=== PATIENT | female | born 1945 | race Two or more races ===

== ENCOUNTER 2022-04-02 09:13 | Inpatient (IN) | payer OTHER ==
[~2022-04-02] VITALS: Ht 165.1 cm; Wt 88.0 kg
[2022-04-02 10:02] LABS: BASOPHILS % (AUTO) 0.5 % (0.0-2.0); EOSINOPHILS % (AUTO) 0.9 % (0.0-6.0); HEMATOCRIT 40 % (33-45); HEMOGLOBIN 13.1 g/dL (11.5-14.8); LYMPHOCYTES # (AUTO) 1.3 K/uL (0.8-4.8); LYMPHOCYTES % (AUTO) 17.6 % (20.0-44.0); MEAN CORPUSCULAR HGB CONC 33 g/dl (31.0-36.0); MEAN CORPUSCULAR VOLUME 90 fL (82-100); MONOCYTES # (AUTO) 0.5 K/uL (0.1-1.30); MONOCYTES % (AUTO) 6.8 % (2.0-12.0); NEUTROPHILS # (AUTO) 5.4 K/uL (1.8-8.9); NEUTROPHILS % (AUTO) 74.2 % (43.0-81.0); PLATELET COUNT (AUTO) 262 K/uL (150-450); RED BLOOD CELL COUNT(AUTO) 4.44 MIL/uL (4.0-5.2); WHITE BLOOD COUNT (AUTO) 7.3 K/uL (4.3-11.0)
--- NOTE | 2022-04-02 10:20 | NUR ---
URINE COLLECTED AND SENT TO LAB
[2022-04-02 10:23] LABS: CALCIUM, SERUM 9.7 mg/dL (8.5-10.1); CARBON DIOXIDE 27 mmol/L (21-32); CHLORIDE 100 mmol/L (98-107); CREATININE 1.3 mg/dL (0.6-1.3); GLUCOSE 276 mg/dL (74-106); POTASSIUM 4.3 mmol/L (3.5-5.1); SODIUM SERUM 139 mmol/L (136-145); UREA NITROGEN, BLOOD 16 mg/dL (7-18)
[2022-04-02] MEDS ORDERED: IV NS 0.9% 1,000 ML IV ONE (11:30)
[2022-04-02] MEDS ORDERED: Magnesium 1 GM/2 ML VIAL IV ONE (11:30)
[2022-04-02] MEDS ORDERED: Magnesium 1 GM/2 ML VIAL ONE (11:33)
[2022-04-02] MEDS ORDERED: Magnesium 1GM/D5W 100ML PREMIX 200 ML IV ONE (11:36)
[2022-04-02] MEDS: Magnesium 1GM/D5W 100ML PREMIX 100 ML IV SCH ×2 (11:40→11:57)
[2022-04-02 12:21] LABS: BILIRUBIN,URINE NEGATIVE (NEGATIVE); COLOR,URINE YELLOW (YELLOW); LEUKOCYTE ESTERASE ,URINE NEGATIVE (NEGATIVE); NITRITE, URINE NEGATIVE (NEGATIVE); PH,URINE 5.5 (5.0-8.0); PROTEIN,URINE NEGATIVE (NEGATIVE); UGLUCOSE 3+ mg/dL (NEGATIVE); UROBILINOGEN,URINE 0.2 EU/dL (0.2)
[2022-04-02] MEDS ORDERED: DILTIAZEM HCL 50 MG IV IV ONE (13:00)
[2022-04-02 13:06] LABS: ABG BASE EXCESS -0.8 mmol/L; ABG OXYGEN SATURATION 49.9 % (92.0-98.5); ABG PCO2 50.4 mmHg (35.0-45.0); ABG PH 7.327 (7.350-7.450); ABG PO2 28.9 mmHg (75.0-100.0); COHb 0.8 % (0.5-1.5); MetHb 0.3 % (0.0-1.5); O2Hb 49.4 % (94.0-97.0); SITE, ABG A-Line; VENT MODE, BG 2 L NC
[2022-04-02 13:06] LABS: RBC,URINE 0-2 /HPF (0-2)
[2022-04-02 13:07] LABS: BACTERIA,URINE Few /HPF (None Seen); SQUAMOUS EPITHELIAL CELL,UR Few /HPF (None Seen)
[2022-04-02] MEDS ORDERED: DILTIAZEM HCL 50 MG IV ONE (13:12)
--- NOTE | 2022-04-02 14:05 | NUR ---
ROSSY ZAMORA, PHONE # [phone]
--- NOTE | 2022-04-02 14:56 | NUR ---
covid swab collected and sent to lab
--- NOTE | 2022-04-02 15:07 | NUR ---
REPORT GIVEN TO KAMILA ALTAMIRANO FOR SORAYA
[2022-04-02] MEDS ORDERED: HYDROCODONE/APAP 5/325MG TABLET PO PRN (16:00)
[2022-04-02] MEDS ORDERED: ENOXAPARIN SODIUM 40 MG/0.4 ML DISP.SYRIN SQ SCH (16:00)
[2022-04-02] MEDS ORDERED: MAGNESIUM HYDROXIDE 30 ML UDC PO PRN (16:00)
[2022-04-02] MEDS ORDERED: Z GUARD REMEDY 4 OZ OINT TP PRN (16:00)
[2022-04-02] MEDS ORDERED: MAG HYDROX/AL HYDROX/SIMETH 30 ML UDC PO PRN (16:00)
[2022-04-02] MEDS ORDERED: ZOLPIDEM TARTRATE 5 MG TABLET PO PRN (16:00)
[2022-04-02] MEDS ORDERED: DILTIAZEM HCL 50 MG IV IV PRN (16:00)
[2022-04-02] MEDS ORDERED: ACETAMINOPHEN 325 MG TABLET PO PRN (16:00)
[2022-04-02] MEDS ORDERED: ONDANSETRON HCL/PF 4 MG/2 ML VIAL IVP PRN (16:00)
[2022-04-02 18:00] VITALS: BP 119/73
--- NOTE | 2022-04-02 18:41 | NUR ---
PATIENT A/O X4, LEBANESE SPEAKING ONLY. FAMILY AT BEDSIDE. AMBULATORY WITH ASSIST. ON TELE, AFIB 100-110S. INDEPENDENT WITH REPOSITIONING. FALL PRECAUTIONS MAINTAINED AT ALL TIMES. SAFETY MEASURES MAINTAINED. BED IN LOWEST POSITION, BRAKES LOCKED. SIDE RAILS UP X2. CALL LIGHT WITHIN REACH. WILL ENDORSE CONTINUITY OF CARE TO ONCOMING SHIFT.
--- NOTE | 2022-04-02 19:30 | NUR ---
MARKETING FINANCE MANAGER OPENING NOTES - RECEIVED PATIENT LAYING IN BED AWAKE. A/OX 4, LITHUANIAN SPEAKING. BREATHING EVEN AND NON-LABORED ON ROOM AIR. NOT IN APPARENT DISTRESS. DENIES PAIN AT THIS TIME. ON TELE MONITOR READING A-FIB AT 106 BPM. HAS RIGHT ANTECUBITAL IV ACCESS #20G AND SALINE LOCKED. NO S/S OF INFILTRATION NOTED. PATIENT IS AMBULATORY. SAFETY PRECAUTIONS IN PLACE: BED LOCKED AND IN LOW POSITION, SIDE RAILS UP X2, CALL LIGHT WITHIN REACH. WILL CONTINUE PLAN OF CARE.
[2022-04-02 20:00] VITALS: BP 123/88
[2022-04-02] MEDS ORDERED: METOPROLOL TARTRATE 25 MG TABLET PO STA (20:00)
[2022-04-02] MEDS ORDERED: ENOXAPARIN SODIUM 80 MG/0.8 ML DISP.SYRIN SQ SCH (20:00)
--- NOTE | 2022-04-02 20:43 | NUR ---
NOTIFIED DR. INMAN THAT PATIENT IS ALLERGIC TO [facility]AN. AWAITING FOR RESPONSE. Addendum: 04/02/22 at 2114 by July FELIPE ALTAMIRANO ORDERED XARELTO 20MG PO DAILY. NOTED AND CARRIED OUT.
[2022-04-03] VITALS (14 sets, daily range): BP systolic 92–140; BP diastolic 47–85
[2022-04-03 05:49] LABS: BASOPHILS % (AUTO) 0.5 % (0.0-2.0); EOSINOPHILS % (AUTO) 1.5 % (0.0-6.0); HEMATOCRIT 38 % (33-45); HEMOGLOBIN 12.4 g/dL (11.5-14.8); LYMPHOCYTES # (AUTO) 1.7 K/uL (0.8-4.8); LYMPHOCYTES % (AUTO) 26.9 % (20.0-44.0); MEAN CORPUSCULAR HGB CONC 33 g/dl (31.0-36.0); MEAN CORPUSCULAR VOLUME 90 fL (82-100); MONOCYTES # (AUTO) 0.6 K/uL (0.1-1.30); MONOCYTES % (AUTO) 9.3 % (2.0-12.0); NEUTROPHILS # (AUTO) 3.9 K/uL (1.8-8.9); NEUTROPHILS % (AUTO) 61.8 % (43.0-81.0); PLATELET COUNT (AUTO) 240 K/uL (150-450); RED BLOOD CELL COUNT(AUTO) 4.16 MIL/uL (4.0-5.2); WHITE BLOOD COUNT (AUTO) 6.3 K/uL (4.3-11.0)
[2022-04-03 06:09] LABS: CALCIUM, SERUM 8.6 mg/dL (8.5-10.1); CREATININE 1.1 mg/dL (0.6-1.3); MAGNESIUM 2.2 mg/dL (1.8-2.4); PHOSPHORUS 3.5 mg/dL (2.5-4.9); POTASSIUM 4.2 mmol/L (3.5-5.1)
--- NOTE | 2022-04-03 06:46 | NUR ---
DEDICATED TRUCK DRIVER CLOSING NOTES - PATIENT SLEEPING IN BED, EASY TO AROUSE. ABLE TO VERBALIZE NEEDS. NO SOB OR NOTED. NO ACUTE DISTRESS THROUGHOUT THE NIGHT. NO C/O PAIN OR DISCOMFORT AT THIS TIME. AFEBRILE. ON TELE MONITOR READING CONTROLLED A-FIB AT 98 BPM. RIGHT ANTECUBITAL IV ACCESS INTACT, PATENT AND FLUSHING. ALL DUE MEDS GIVEN AND NEEDS ATTENDED. SAFETY PRECAUTIONS MAINTAINED. WILL ENDORSE TO NEXT SHIFT FOR SORAYA.
--- NOTE | 2022-04-03 07:40 | NUR ---
RN OPENING NOTE- - PT IN BED AWAKE. A/OX 4, ROMANIAN SPEAKING. BREATHING EVEN AND NON-LABORED ON ROOM AIR. DENIES PAIN AT THIS TIME. ON TELE MONITOR READING A-FIB AT 102 BPM. HAS RIGHT ANTECUBITAL IV ACCESS #20G . PATIENT IS AMBULATORY. SAFETY PRECAUTIONS IN PLACE: BED LOCKED AND IN LOW POSITION, SIDE RAILS UP X2, CALL LIGHT WITHIN REACH. WILL CONTINUE PLAN OF CARE / MONITOR
[2022-04-03] MEDS ORDERED: METOPROLOL TARTRATE 25 MG TABLET PO SCH ×2 (09:00→13:30)
[2022-04-03] MEDS ORDERED: APIXABAN 5 MG TABLET PO SCH (09:00)
[2022-04-03] MEDS: PANTOPRAZOLE 40 MG TABLET.DR PO SCH (09:30)
[2022-04-03] MEDS ORDERED: LORA10TA7 PO (09:34)
[2022-04-03] MEDS ORDERED: METO-357 PO (09:34)
[2022-04-03] MEDS ORDERED: LEVO75TA7 PO (09:34)
[2022-04-03] MEDS ORDERED: ATOR20TA PO (09:34)
[2022-04-03] MEDS ORDERED: METF-442 PO (09:34)
[2022-04-03] MEDS ORDERED: SACU1TAB7 PO (09:34)
[2022-04-03] MEDS ORDERED: RIVA10TA PO (09:34)
[2022-04-03] MEDS ORDERED: HYDR12.55 PO (09:34)
[2022-04-03] MEDS ORDERED: GLIM4TAB37 PO (09:34)
[2022-04-03] MEDS ORDERED: AMLO-212 PO (09:34)
--- NOTE | 2022-04-03 11:45 | NUR ---
RN NOTE- TELE MONITOR READINGS IN 180S. PT FOUND TO BE IN BR. ASSISTED BACK TO BED. HR DOWN TO 130'S. DR INMAN AND DR ARROYO NOTIFIED. DR ARROYO ORDERED CARDIZEM 10 MG IVP STAT. COMPLIED
[2022-04-03] MEDS ORDERED: DILTIAZEM HCL 50 MG IV IV STA (12:00)
[2022-04-03] MEDS ORDERED: DILTIAZEM HCL 25 MG IV IV ONE (12:06)
--- NOTE | 2022-04-03 12:46 | NUR ---
RN NOTE- SENIOR BRAND MANAGER NOTIFIED THIS RN THAT DR INMAN WANTS TO TRANSFER PT TO [facility]. BEGIN PROCESS. PT HR - 104.
[2022-04-03] MEDS: METOPROLOL TARTRATE 25 MG TABLET PO SCH ×3 (12:59→22:03)
--- NOTE | 2022-04-03 13:20 | NUR ---
RN NOTE- DR INMAN ORDERED PT TO ICU FOR TITRATED CARDIZEM DRIP . PT HR- AFIB 104, BP - 110/46. WILL PREPARE PT NOW
--- NOTE | 2022-04-03 13:33 | NUR ---
RN NOTE: TRANSFER FROM 3W PT RECEIVED FROM 3W AND REPORT RECEIVED AT BEDSIDE FROM ADARSH DAVALOS. PT TRANSFERRED TO [facility] FOR CARDIZEM DRIP. WILL CONTINUE TO MONITOR THIS SHIFT.
[2022-04-03] MEDS ORDERED: DILTIAZEM HCL IV 125 MG in IV NS 0.9% 100 ML IV PRN (14:00)
[2022-04-03] MEDS ORDERED: RIVAROXABAN 10 MG TABLET PO SCH (17:00)
[2022-04-03] MEDS: RIVAROXABAN 15 MG TABLET PO SCH (19:21)
--- NOTE | 2022-04-03 19:30 | NUR ---
PT IS IN BED WITH HOB ON SEMI FOWLERS. PT O2 SAT AT 97%. TOLERATING WELL WITH NO SIGNS OF LABORED BREATHING OR DISTRESS. PT IS A/OX3 TAIWANESE SPEAKING ONLY. PT USES BED SIDE COMMODE AND IS ON [facility] DIET AND CAN FEED HERSELF. IV ACCESS L AC INFUSING WITH CARDIZEM DRIP @5MG/HR FOR AFIB. BED IS LOCKED IN LOWEST POSITION X2 BED RAILS UP CALL LIGHT IS WITHIN REACH AND ALL HOSPITAL SAFETY MEASURES ARE IN PLACE. WILL CONTINUE PLAN OF CARE.
--- NOTE | 2022-04-03 19:57 | NUR ---
RN CLOSING NOTE PT IS IN BED WITH HOB HIGH FOWLERS. PT O2 SAT 97% TOLERATING WELL WITH NO SIGNS OF LABORED BREATHING OR DISTRESS. PT IS A/OX3 SLOVAK SPEAKING ONLY. PT USES BED SIDE COMMODE AND IS ON CCHO DIET AND CAN FEED HERSELF. IV ACCESS L AC INFUSING WITH CARDIZEM DRIP @5MG/HR FOR AFIB. BED IS LOCKED IN LOWEST POSITION X2 BED RAILS UP CALL LIGHT IS WITHIN REACH AND ALL HOSPITAL SAFETY MEASURES ARE IN PLACE. WILL ENDORSE TO HR REPRESENTATIVE NURSE FOR OSRAYA.
[2022-04-04] VITALS (22 sets, daily range): BP systolic 120–162; BP diastolic 47–94
--- NOTE | 2022-04-04 07:36 | NUR ---
PT IS IN BED WITH HOB ON SEMI FOWLERS. PT O2 SAT AT 97%. TOLERATING WELL WITH NO SIGNS OF LABORED BREATHING OR DISTRESS. PT IS AOX3 MALAY SPEAKING ONLY. PT USES BED SIDE COMMODE AND [facility] AND CAN FEED HERSELF. IV ACCESS LT FA ON SL. BED IS LOCKED IN LOWEST POSITION X2 BED RAILS UP CALL LIGHT IS WITHIN REACH AND ALL HOSPITAL. NEEDS ATTENDED. SAFETY MEASURES MAINTAINED. WILL ENDORSE TO NEXT NURSE ON DUTY FOR CONTINUITY OF CARE.
--- NOTE | 2022-04-04 07:53 | NUR ---
PT IN BED A/O X4 DIVEHI SPEAKING. BED SIDE MONITOR SHOWS CONTROLLED A FIB RATE <100 CARDIZEM DRIP TITRATED OFF AT END OF POWER REACTOR SUPERVISOR. VITALS ARE STABLE WITH HTN BP 150/76. LEFT FOREARM 20G SALINE FLUSH PATENT NO S/S OF INFILTRATION. PT IS AMBULATORY AND CONTINENT. IN BED EATTING BREAKFAST.
[2022-04-04] MEDS: PANTOPRAZOLE 40 MG TABLET.DR PO SCH (08:25)
[2022-04-04] MEDS: METOPROLOL TARTRATE 25 MG TABLET PO SCH ×2 (08:26→16:59)
[2022-04-04] MEDS: DILTIAZEM HCL CD 120 MG PO SCH (13:32)
[2022-04-04] MEDS: RIVAROXABAN 15 MG TABLET PO SCH (17:00)
--- NOTE | 2022-04-04 19:16 | NUR ---
noc rn note Patient received at this time. transferred from ICU. Patient is a/ox4, fijian speaking. no s/s of apparent distress on room air. denies any pain nor chest pain at this time. reading a-fib, controlled on the tele monitor. Patient ambulates with steady gait, with no sob noted. lt. fa #20g noted in place, saline lock. call light within reach. safety in place. needs attended for now. will continue with patient's plan of care.
--- NOTE | 2022-04-04 19:22 | NUR ---
PT IN BED BREATHING IS EVEN AND UNLABORED ON 6L NC, A/O X3, NO S/S OF ACUTE DISTRESS. BED SIDE MONITOR SHOWS VITAL SIGNS WNL. O2 SAT 93%. ON LEVO DRIP 0.05MCG/KG/MIN 0.1 DOSE RATE OVER SHOOTS TARGET BP CAUSES PT TO BE HYPERTENSIVE. MIDLINE INSERTION NI S/S OF INFILTRATION FLUSHES WITH EASE. THORACENTESIS OF LEFT PLURAL EFFUSION PREFORMED 700ML REMOVED AND SENT TO LAB. RENAL US DONE AND RESULTED NO HYDRONEPHROSIS OR STONES. MUJICA CATHETER NEEDED TO BE FLUSHED WITH 30 ML OF SALINE FOR PATENCY. MUJICA CATHETER IS NOW PATENT DRAINING YELLOW URINE 400 ML OUTPUT. HOB AT LOW FOWLERS.
[2022-04-05 01:00] VITALS: BP 133/81
[2022-04-05 05:00] VITALS: BP 139/70
[2022-04-05 06:23] LABS: BASOPHILS % (AUTO) 0.5 % (0.0-2.0); HEMATOCRIT 36 % (33-45); HEMOGLOBIN 12.4 g/dL (11.5-14.8); LYMPHOCYTES # (AUTO) 1.6 K/uL (0.8-4.8); LYMPHOCYTES % (AUTO) 27.2 % (20.0-44.0); MEAN CORPUSCULAR HGB CONC 35 g/dl (31.0-36.0); MEAN CORPUSCULAR VOLUME 93 fL (82-100); MONOCYTES # (AUTO) 0.6 K/uL (0.1-1.30); MONOCYTES % (AUTO) 10.2 % (2.0-12.0); NEUTROPHILS # (AUTO) 3.7 K/uL (1.8-8.9); NEUTROPHILS % (AUTO) 61.1 % (43.0-81.0); PLATELET COUNT (AUTO) 238 K/uL (150-450); RED BLOOD CELL COUNT(AUTO) 3.87 MIL/uL (4.0-5.2)
[2022-04-05 06:38] LABS: ALANINE AMINOTRANSFERASE 22 U/L (12-78); ALBUMIN 3.2 g/dL (3.4-5.0); ALKALINE PHOSPHATASE 91 U/L (46-116); ASPARTATE AMINOTRANSFERASE 17 U/L (15-37); BILIRUBIN,TOTAL 0.4 mg/dL (0.2-1.0); CALCIUM, SERUM 8.9 mg/dL (8.5-10.1); CARBON DIOXIDE 31 mmol/L (21-32); CHLORIDE 103 mmol/L (98-107); CREATININE 1.1 mg/dL (0.6-1.3); GLUCOSE 177 mg/dL (74-106); MAGNESIUM 2.1 mg/dL (1.8-2.4); PHOSPHORUS 4.1 mg/dL (2.5-4.9); POTASSIUM 4.2 mmol/L (3.5-5.1); SODIUM SERUM 140 mmol/L (136-145); TOTAL PROTEIN, SERUM 6.8 g/dL (6.4-8.2); UREA NITROGEN, BLOOD 13 mg/dL (7-18)
--- NOTE | 2022-04-05 07:05 | NUR ---
RN OPENING NOTE PT IS IN BED ASLEEP, O2 SAT 97% ON RA, NO SIGNS OF LABORED BREATHING OR DISTRESS. PT IS A/O X 3 SRI LANK[place] SPEAKING ONLY. PT US[facility]ED SIDE COMMODE AND [facility] AND CAN FEED HERSELF. IV ACCESS L AC FLUSHES WELL. BED IS LOCKED IN LOWEST POSITION X2 BED RAILS UP CALL LIGHT IS WITHIN REACH AND ALL HOSPITAL SAFETY MEASURES ARE IN PLACE. WILL CONTINUE TO MONITOR.
--- NOTE | 2022-04-05 07:29 | NUR ---
noc rn closing note needs attended. no significant change. endorsed to ADARSH Balbuena for continuity of patient care.
[2022-04-05] MEDS: PANTOPRAZOLE 40 MG TABLET.DR PO SCH (07:39)
[2022-04-05] MEDS: DILTIAZEM HCL CD 120 MG PO SCH (08:55)
[2022-04-05] MEDS: METOPROLOL TARTRATE 25 MG TABLET PO SCH (08:56)
[2022-04-05 09:00] VITALS: BP 143/81
[2022-04-05] MEDS ORDERED: METO25TA20 PO (12:37)
[2022-04-05] MEDS ORDERED: DILT120C87 PO (12:37)
[2022-04-05] MEDS ORDERED: RIVA15TA PO (12:37)
[2022-04-05 13:00] VITALS: BP 128/78
== END 2022-04-05 19:49 | disposition home or self-care (01) | DRG 201 ==
LOC: ER 09:15 → TELE 16:12 → ICU 04-03 13:37 → TELE-TD 04-04 19:15 → TELE1 04-04 22:44
DX: I48.91 Unspecified atrial fibrillation (principal); D68.59 Other primary thrombophilia; E11.40 Type 2 diabetes mellitus with diabetic neuropathy, unspecified; E66.9 Obesity, unspecified; Z88.8 Allergy status to other drugs, medicaments and biological substances; E78.5 Hyperlipidemia, unspecified; Z68.32 Body mass index [BMI] 32.0-32.9, adult; Z79.899 Other long term (current) drug therapy
CPT/HCPCS: 36415; 36600; 71045-TC; 80048-TC; 80053-TC; 81001; 82803-TC; 82962-TC; 83735-TC; 83880; 84100-TC; 84484-TC; 85025-TC; 87081-TC; 93307-TC; C9803; G0378; J3475; J3490; J7030